=== PATIENT | female | born 1945 | race Two or more races ===

== ENCOUNTER 2025-04-09 09:23 | Inpatient (IN) | payer MEDICARE, MEDICAID ==
[~2025-04-09] VITALS: Ht 160 cm; Wt 52.6 kg
[~2025-04-09 09:23] MED LIST: ASCO500C14 PO; BENA1TAB18 PO; IBUP-2030 PO; SERT-112 PO; TOPUD PO
[2025-04-09 09:24] VITALS: O2SAT 99
[2025-04-09 09:57] LABS: BASOPHILS % 0.7 % (0.0-2.0); EOSINOPHILS % 2.0 % (0.0-5.0); HEMATOCRIT. 32.4 % (36.0-48.0); HEMOGLOBIN. 11.2 g/dL (12.0-16.0); LYMPHOCYTES % 10.1 % (20.0-50.0); MEAN PLATELET VOLUME 8.1 fl (7.4-10.4); MONOCYTES % 4.8 % (2.0-8.0); NEUTROPHILS % 82.4 % (40.0-76.0); PLATELET 461 x1000/uL (130-400); RED BLOOD CELL COUNT 3.82 mill/uL (4.2-5.4); RED CELL DISTRIBUTION WIDTH 13.8 % (11.6-14.6)
[2025-04-09 10:08] LABS: CREATININE 0.7 mg/dL (0.6-1.0)
[2025-04-09 10:09] LABS: UREA NITROGEN BLOOD 12 mg/dL (9-23)
[2025-04-09 10:10] LABS: ASPARTATE AMINOTRANSFERASE 16 IU/L (<34)
[2025-04-09 10:11] LABS: BILIRUBIN DIRECT 0.2 mg/dL (<=3.0); BILIRUBIN TOTAL 0.5 mg/dL (0.1-1.0); PROTEIN TOTAL 7.2 g/dL (6.0-8.3)
[2025-04-09] MEDS ORDERED: ACETAMINOPHEN 325MG TABLET PO PRN (13:00)
[2025-04-09] MEDS ORDERED: IPRATROPIUM/ALBUTEROL 0.5-3(2.5)MG/3ML NEB HHN PRN (13:00)
[2025-04-09] MEDS ORDERED: ONDANSETRON HCL 4MG/2ML INJ IV PRN (13:00)
[2025-04-09 15:00] VITALS: BP 122/55; PULSE 87; RESP 16; TEMP 36.7; O2SAT 97
[2025-04-09 15:15] LABS: CREATINE KINASE MB FRACTION 1.1 ng/mL (0.5-3.6)
[2025-04-09] MEDS: DOCUSATE SODIUM 100MG CAPSULE PO PRN (16:50)
[2025-04-09] MEDS: ACETAMINOPHEN 325MG TABLET PO PRN (16:50)
[2025-04-09 17:00] VITALS: BP 122/55; PULSE 67; RESP 18; TEMP 36.696
[2025-04-09] MEDS ORDERED: CLONIDINE 0.1MG TABLET PO PRN (18:00)
[2025-04-09 20:40] VITALS: BP 125/53; PULSE 71; RESP 17; TEMP 36.6; O2SAT 98
[2025-04-09] MEDS: DOCUSATE SODIUM 100MG CAPSULE PO SCH (21:00)
[2025-04-09] MEDS: ENOXAPARIN 30MG/0.3ML SYR SUBCUT SCH (21:00)
[2025-04-09] MEDS: IBUPROFEN 200MG TABLET PO SCH (22:08)
[2025-04-10] VITALS: BP 122/63; PULSE 61; RESP 17; TEMP 36.9; O2SAT 98
[2025-04-10 04:00] VITALS: BP 157/55; PULSE 66; RESP 17; TEMP 36.3; O2SAT 95
[2025-04-10 06:45] LABS: BASOPHILS % 0.5 % (0.0-2.0); EOSINOPHILS % 2.3 % (0.0-5.0); HEMATOCRIT. 31.5 % (36.0-48.0); HEMOGLOBIN. 10.7 g/dL (12.0-16.0); LYMPHOCYTES % 14.0 % (20.0-50.0); MEAN PLATELET VOLUME 8.0 fl (7.4-10.4); MONOCYTES % 5.7 % (2.0-8.0); NEUTROPHILS % 77.5 % (40.0-76.0); PLATELET 426 x1000/uL (130-400); RED BLOOD CELL COUNT 3.69 mill/uL (4.2-5.4); RED CELL DISTRIBUTION WIDTH 13.8 % (11.6-14.6)
[2025-04-10 07:06] LABS: CREATININE 0.6 mg/dL (0.6-1.0)
[2025-04-10 07:07] LABS: UREA NITROGEN BLOOD 13 mg/dL (9-23)
[2025-04-10 07:13] LABS: T4 FREE 1.41 ng/dL (0.89-1.76)
[2025-04-10 08:00] VITALS: BP 123/54; PULSE 68; RESP 18; TEMP 36.8; O2SAT 98
[2025-04-10 08:13] LABS: HEPATITIS C AB NON REACTIVE (Neg) (Negative)
[2025-04-10] MEDS: FAMOTIDINE 20MG/2ML VIAL IV SCH (09:24)
[2025-04-10] MEDS: LACTULOSE 20G/30ML UDC PO NR (11:18)
[2025-04-10 12:00] VITALS: BP 121/46; PULSE 62; RESP 18; TEMP 37.1; O2SAT 94
[2025-04-10] MEDS: INSULIN LISPRO 100 UNITS/ML SUBCUT SCH (12:15)
[2025-04-10] MEDS ORDERED: DEXTROSE 50% WATER 50ML SYRINGE IV PRN (12:15)
[2025-04-10 16:00] VITALS: BP 108/48; PULSE 73; RESP 18; TEMP 37.2; O2SAT 95
[2025-04-10] MEDS: BLOOD SUGAR DIAGNOSTIC STRIP TEST SCH (16:45)
[2025-04-10 20:00] VITALS: BP 103/59; PULSE 80; RESP 17; TEMP 36; O2SAT 97
[2025-04-11] VITALS: BP 117/54; PULSE 64; RESP 16; TEMP 36.4; O2SAT 95
[2025-04-11 04:00] VITALS: BP 140/63; PULSE 86; RESP 18; TEMP 36.4; O2SAT 100
[2025-04-11 07:13] LABS: BASOPHILS % 0.6 % (0.0-2.0); EOSINOPHILS % 3.5 % (0.0-5.0); HEMATOCRIT. 30.1 % (36.0-48.0); HEMOGLOBIN. 10.4 g/dL (12.0-16.0); LYMPHOCYTES % 15.2 % (20.0-50.0); MEAN PLATELET VOLUME 8.3 fl (7.4-10.4); MONOCYTES % 6.0 % (2.0-8.0); NEUTROPHILS % 74.7 % (40.0-76.0); PLATELET 449 x1000/uL (130-400); RED BLOOD CELL COUNT 3.51 mill/uL (4.2-5.4); RED CELL DISTRIBUTION WIDTH 13.6 % (11.6-14.6)
[2025-04-11 07:53] LABS: CREATININE 0.7 mg/dL (0.6-1.0)
[2025-04-11 07:54] LABS: UREA NITROGEN BLOOD 12 mg/dL (9-23)
[2025-04-11 08:00] VITALS: BP 99/44; PULSE 72; RESP 18; TEMP 37.1; O2SAT 97
[2025-04-11] MEDS ORDERED: DOCU250C14 MT (10:30)
[2025-04-11 12:00] VITALS: BP 116/52; PULSE 67; RESP 18; TEMP 36.9; O2SAT 99
[2025-04-11] MEDS ORDERED: AMOX1TAB16 MT (14:25)
[2025-04-11 16:00] VITALS: BP 104/67; PULSE 67; RESP 18; TEMP 37.1; O2SAT 100
[2025-04-11 20:00] VITALS: BP 126/57; PULSE 66; RESP 18; TEMP 36.4; O2SAT 98
[2025-04-12] VITALS: BP 127/52; PULSE 67; RESP 18; TEMP 36.9; O2SAT 98
[2025-04-12 04:00] VITALS: BP 114/51; PULSE 58; RESP 19; TEMP 35.8; O2SAT 98
[2025-04-12 08:00] VITALS: BP 131/62; PULSE 61; RESP 19; TEMP 36.9; O2SAT 98
[2025-04-12 12:00] VITALS: BP 126/55; PULSE 67; RESP 18; TEMP 36.8; O2SAT 97
[2025-04-12 15:02] VITALS: BP 126/55; PULSE 67; RESP 20; TEMP 98.2
[2025-04-12] MEDS ORDERED: DOCU250C14 MT (16:07)
[2025-04-12] MEDS ORDERED: AMOX1TAB16 MT (16:07)
== END 2025-04-12 16:50 | disposition home or self-care (01) | DRG 392 ==
LOC: ER 09:23 → 5WST 10:51 → EDBEDREQ 11:09 → EDBEDREQSVC 11:09 → EDBEDREQTM 11:09 → ENRESERV 11:30 → 5WST 14:51
PROVIDERS: ADMIT Internal Medicine; ATTEND Internal Medicine
DX: K59.00 Constipation, unspecified (principal); T81.49XA Infection following a procedure, other surgical site, initial encounter; L03.115 Cellulitis of right lower limb; I35.0 Nonrheumatic aortic (valve) stenosis; R10.9 Unspecified abdominal pain; I10 Essential (primary) hypertension; Z96.641 Presence of right artificial hip joint; Z90.710 Acquired absence of both cervix and uterus; Y83.8 Other surgical procedures as the cause of abnormal reaction of the patient, or of later complication, without mention of misadventure at the time of the procedure; Y82.8 Other medical devices associated with adverse incidents
CPT/HCPCS: 36415; 73610; 74176; 80048; 80076; 82550; 82553; 82962; 83036; 83540; 83550; 83605; 84145; 84439; 84443; 85025; 86705; 87340; 93923; 93970; 97162; 97530; 99285; A4606; J1308; J1650